=== PATIENT | male | born 1995 | race Two or more races ===

== ENCOUNTER → 2025-08-09 | Outpatient (CLI) | payer OTHER, SELFPAY ==
--- NOTE | 2025-08-09 15:35 | XR_ITS ---
Examination: Shoulder, right, 3 views Technique: Shoulder AP internal rotation, AP external rotation, Y view shoulder, 3 views Exam date and time : 08/09/2025 at 3:58 p.m. INDICATION: Right shoulder pain when lifting or moving arm after an injury 6 weeks ago FINDINGS: The rotator space appears normal and the glenohumeral joint appears normal. The AC joint appears normal. Scapula and proximal humerus appear normal and I see no abnormalities in the visible right lung or rib cage. IMPRESSION: 1. Radiographs of the right shoulder are entirely normal
== END | disposition home or self-care (01) ==
PROVIDERS: PCP Nurse Practitioner; Referring Provider Family Medicine; Visit Provider Family Medicine
DX: S49.81XA Other specified injuries of right shoulder and upper arm, initial encounter (principal); X58.XXXA Exposure to other specified factors, initial encounter
CPT/HCPCS: 73030